=== PATIENT | female | born 1990 | race Caucasian/White ===

== ENCOUNTER 2024-09-13 12:40 | Emergency (ER) | payer BC ==
[2024-09-13] MEDS ORDERED: Sodium Chloride 0.9% 10 ML Syringe FLUSH PRN (13:28)
[2024-09-13] MEDS: Sodium Chloride 0.9% 1,000 ML IV ONE ×2 (13:40→15:39)
[2024-09-13] MEDS: Ondansetron 4 MG/2 ML SDV IVPUSH ONE (13:40)
[2024-09-13 13:42] LABS: BASOPHILS PERCENT AUTO 0.2 % (0.2-1.5); EOSINOPHILS PERCENT AUTO 0.4 % (0.6-8.1); HEMATOCRIT 44.9 % (34.2-48.2); HEMOGLOBIN 15.8 g/dL (11.4-15.5); LYMPHOCYTES PERCENT AUTO 12.4 % (18.4-52.1); MEAN CORPUSCULAR HEMOGLOBIN 30.7 pg (23.9-33.9); MEAN CORPUSCULAR HGB CONC 35.2 g/dL (31.9-34.8); MEAN CORPUSCULAR VOLUME 87.2 fL (76.7-100.5); MEAN PLATELET VOLUME 10.2 fL (7.1-12.4); MONOCYTES ABSOLUTE AUTO 0.8 x10-3/uL (0.3-1.0); MONOCYTES PERCENT AUTO 10.4 % (4.4-15.7); NEUTROPHILS ABSOLUTE AUTO 6.2 x10-3/uL (1.5-6.3); NEUTROPHILS PERCENT AUTO 76.6 % (30.8-76.2); PLATELET COUNT,PLT 208 x10(3)uL (151-488); RED BLOOD CELL COUNT 5.14 x10(6)uL (3.60-5.20); RED CELL DISTRIBUTION WIDTH 12.6 % (12.3-16.5); WHITE BLOOD CELL COUNT,WBC 8.1 x10-3/uL (3.0-10.3)
[2024-09-13 13:45] LABS: BLOOD UREA NITROGEN,BUN 8 mg/dL (7-18); BUN/CREATININE RATIO 8.9 (9-20); CALCIUM 9.1 mg/dL (8.6-10.2); CARBON DIOXIDE,CO2 24 mmol/L (21-32); CHLORIDE,CL 102 mmol/L (100-110); CREATININE 0.9 mg/dL (0.55-1.02); ESTIMATED GFR 86 mL/min (>60); GLUCOSE RANDOM 93 mg/dL (80-116); POTASSIUM,K 3.5 mmol/L (3.5-5.3); SODIUM,NA 139 mmol/L (135-145)
[2024-09-13 13:52] LABS: ALANINE AMINOTRANSFERASE,ALT 33 U/L (12-36); ALBUMIN 3.6 g/dL (3.5-5.2); ALKALINE PHOSPHATASE 68 IU/L (56-112); ASPARTATE AMNIOTRANSFERASE,AST 18 IU/L (5-25); BILIRUBIN TOTAL 0.4 mg/dL (0.1-1.3); PROTEIN TOTAL,TP 7.4 g/dL (6.0-8.0)
[2024-09-13 13:56] LABS: LACTIC ACID 0.8 mmol/L (0.4-2.0)
== END 2024-09-13 16:18 | disposition home or self-care (01) ==
LOC: FB.ED 12:40
DX: O21.0 Mild hyperemesis gravidarum (principal); O30.041 Twin pregnancy, dichorionic/diamniotic, first trimester; Z3A.09 9 weeks gestation of pregnancy
CPT/HCPCS: 80053; 83605; 85025; 86140; 96361; 96374; 99284; J2405; J7030

== ENCOUNTER 2024-10-09 09:02 | Emergency (ER) | payer BC ==
[2024-10-09] MEDS: Sodium Chloride 0.9% 1,000 ML IV ONE ×3 (09:46→11:55)
[2024-10-09] MEDS: Promethazine 12.5 MG in Sodium Chloride 0.9% 50 ML IV ONE (09:46)
[2024-10-09 09:51] LABS: BASOPHILS PERCENT AUTO 0.1 % (0.2-1.5); EOSINOPHILS PERCENT AUTO 0.1 % (0.6-8.1); HEMATOCRIT 49.4 % (34.2-48.2); HEMOGLOBIN 17.7 g/dL (11.4-15.5); LYMPHOCYTES ABSOLUTE AUTO 1.1 x10-3/uL (1.0-4.4); LYMPHOCYTES PERCENT AUTO 8.1 % (18.4-52.1); MEAN CORPUSCULAR HEMOGLOBIN 30.4 pg (23.9-33.9); MEAN CORPUSCULAR HGB CONC 35.8 g/dL (31.9-34.8); MEAN CORPUSCULAR VOLUME 84.9 fL (76.7-100.5); MEAN PLATELET VOLUME 12.1 fL (7.1-12.4); MONOCYTES PERCENT AUTO 7.9 % (4.4-15.7); NEUTROPHILS ABSOLUTE AUTO 10.9 x10-3/uL (1.5-6.3); NEUTROPHILS PERCENT AUTO 83.8 % (30.8-76.2); PLATELET COUNT,PLT 226 x10(3)uL (151-488); RED BLOOD CELL COUNT 5.82 x10(6)uL (3.60-5.20); RED CELL DISTRIBUTION WIDTH 12.8 % (12.3-16.5); WHITE BLOOD CELL COUNT,WBC 13.1 x10-3/uL (3.0-10.3)
[2024-10-09 09:54] LABS: BLOOD UREA NITROGEN,BUN 9 mg/dL (7-18); BUN/CREATININE RATIO 8.2 (9-20); CALCIUM 9.7 mg/dL (8.6-10.2); CARBON DIOXIDE,CO2 17 mmol/L (21-32); CHLORIDE,CL 100 mmol/L (100-110); CREATININE 1.1 mg/dL (0.55-1.02); ESTIMATED GFR 67 mL/min (>60); GLUCOSE RANDOM 134 mg/dL (80-116); POTASSIUM,K 3.2 mmol/L (3.5-5.3); SODIUM,NA 138 mmol/L (135-145)
[2024-10-09 09:59] LABS: A/G RATIO 0.7; ALANINE AMINOTRANSFERASE,ALT 47 U/L (12-36); ALBUMIN 3.4 g/dL (3.5-5.2); ALKALINE PHOSPHATASE 91 IU/L (56-112); ASPARTATE AMNIOTRANSFERASE,AST 29 IU/L (5-25); BILIRUBIN TOTAL 0.7 mg/dL (0.1-1.3); MAGNESIUM 1.4 mg/dL (1.8-2.5); PROTEIN TOTAL,TP 8.1 g/dL (6.0-8.0)
[2024-10-09] MEDS: diphenhydrAMINE 50 MG/ML SDV IVPUSH ONE (11:55)
[2024-10-09] MEDS: Prochlorperazine 10 MG/2 ML SDV IVPUSH ONE (11:56)
[2024-10-09] MEDS: Vitamin B6-pyridOXINE 100 MG Tab PO ONE (13:12)
[2024-10-09 13:48] LABS: BILIRUBIN,URINE NEGATIVE (NEGATIVE); GLUCOSE,URINE NORMAL (NORMAL); KETONES,URINE 150 mg/dL (NEGATIVE); LEUKOCYTE ESTERASE,URINE NEGATIVE (NEGATIVE); NITRITE,URINE NEGATIVE (NEGATIVE); OCCULT BLOOD,URINE NEGATIVE (NEGATIVE); PROTEIN,URINE 30 mg/dL (NEGATIVE); UROBILINOGEN,URINE NORMAL (NEGATIVE)
[2024-10-09 14:09] LABS: APPEARANCE,URINE CLEAR (CLEAR); BACTERIA,URINE FEW (NS); COLOR,URINE YELLOW (YELLOW); RBC,URINE 0-5 (0-5); SQUAMOUS EPITHELIAL CELLS,UR FEW (NS,R,O); WBC,URINE 0-5 (0-5)
[2024-10-09] MEDS: Sodium Chloride 0.9% 1,000 ML IV SCH ×2 (14:56→21:41)
[2024-10-09] MEDS: Ondansetron 4 MG/2 ML SDV IVPUSH ONE (14:56)
[2024-10-09] MEDS ORDERED: Prochlorperazine 5 MG in Sodium Chloride 0.9% 50 ML IV PRN (16:12)
[2024-10-09] MEDS ORDERED: Acetaminophen 325 MG Tab PO PRN (16:12)
[2024-10-09] MEDS: Magnesium Sulfate/Water Premix 2 GM in Premix Bag 1 BAG IV SCH (17:01)
[2024-10-09] MEDS: Vitamin B6-pyridOXINE 100 MG Tab PO SCH (21:44)
[2024-10-10] MEDS: Magnesium Oxide 400 MG Tab PO ONE (04:43)
[2024-10-10 06:46] LABS: BASOPHILS PERCENT AUTO 0.4 % (0.2-1.5); EOSINOPHILS PERCENT AUTO 0.4 % (0.6-8.1); HEMATOCRIT 39.1 % (34.2-48.2); HEMOGLOBIN 13.8 g/dL (11.4-15.5); LYMPHOCYTES ABSOLUTE AUTO 1.4 x10-3/uL (1.0-4.4); LYMPHOCYTES PERCENT AUTO 13.2 % (18.4-52.1); MEAN CORPUSCULAR HEMOGLOBIN 30.5 pg (23.9-33.9); MEAN CORPUSCULAR HGB CONC 35.4 g/dL (31.9-34.8); MEAN CORPUSCULAR VOLUME 86.2 fL (76.7-100.5); MEAN PLATELET VOLUME 11.3 fL (7.1-12.4); NEUTROPHILS ABSOLUTE AUTO 8.3 x10-3/uL (1.5-6.3); PLATELET COUNT,PLT 157 x10(3)uL (151-488); RED BLOOD CELL COUNT 4.53 x10(6)uL (3.60-5.20); RED CELL DISTRIBUTION WIDTH 13.2 % (12.3-16.5); WHITE BLOOD CELL COUNT,WBC 10.7 x10-3/uL (3.0-10.3)
[2024-10-10 07:30] LABS: CALCIUM 7.6 mg/dL (8.6-10.2); CARBON DIOXIDE,CO2 17 mmol/L (21-32); CREATININE 0.7 mg/dL (0.55-1.02); EST CRCL DRUG DOSING (CG) 100.94 mL/min; ESTIMATED GFR 116 mL/min (>60); GLUCOSE RANDOM 91 mg/dL (80-116); MAGNESIUM 1.9 mg/dL (1.8-2.5)
[2024-10-10 07:53] LABS: BLOOD UREA NITROGEN,BUN < 5 mg/dL (7-18); BUN/CREATININE RATIO 7.1 (9-20)
[2024-10-10 08:45] LABS: CHLORIDE,CL 108 mmol/L (100-110); POTASSIUM,K 2.9 mmol/L (3.5-5.3); SODIUM,NA 140 mmol/L (135-145)
[2024-10-10] MEDS: Pantoprazole 40 MG Vial IVPUSH SCH (09:53)
[2024-10-10] MEDS: Ondansetron 4 MG/2 ML SDV IV PRN (09:56)
[2024-10-10] MEDS: Sodium Chloride 0.9% 10 ML Syringe FLUSH PRN (10:06)
[2024-10-10] MEDS: NS + KCl 20mEq/L 1,000 ML IV SCH (11:12)
[2024-10-11 05:47] LABS: CARBON DIOXIDE,CO2 16 mmol/L (21-32); CHLORIDE,CL 107 mmol/L (100-110); CREATININE 0.5 mg/dL (0.55-1.02); EST CRCL DRUG DOSING (CG) 141.31 mL/min; ESTIMATED GFR 125 mL/min (>60); GLUCOSE RANDOM 81 mg/dL (80-116); POTASSIUM,K 3.2 mmol/L (3.5-5.3); SODIUM,NA 138 mmol/L (135-145)
[2024-10-11 05:58] LABS: BASOPHILS PERCENT AUTO 0.4 % (0.2-1.5); EOSINOPHILS PERCENT AUTO 0.6 % (0.6-8.1); HEMATOCRIT 36.1 % (34.2-48.2); HEMOGLOBIN 13.3 g/dL (11.4-15.5); LYMPHOCYTES ABSOLUTE AUTO 1.3 x10-3/uL (1.0-4.4); LYMPHOCYTES PERCENT AUTO 19.8 % (18.4-52.1); MEAN CORPUSCULAR HEMOGLOBIN 31.5 pg (23.9-33.9); MEAN CORPUSCULAR HGB CONC 36.9 g/dL (31.9-34.8); MEAN CORPUSCULAR VOLUME 85.4 fL (76.7-100.5); MEAN PLATELET VOLUME 11.5 fL (7.1-12.4); MONOCYTES ABSOLUTE AUTO 0.7 x10-3/uL (0.3-1.0); MONOCYTES PERCENT AUTO 10.4 % (4.4-15.7); NEUTROPHILS ABSOLUTE AUTO 4.6 x10-3/uL (1.5-6.3); NEUTROPHILS PERCENT AUTO 68.8 % (30.8-76.2); PLATELET COUNT,PLT 143 x10(3)uL (151-488); RED BLOOD CELL COUNT 4.23 x10(6)uL (3.60-5.20); WHITE BLOOD CELL COUNT,WBC 6.7 x10-3/uL (3.0-10.3)
[2024-10-11 06:00] LABS: BLOOD UREA NITROGEN,BUN < 5 mg/dL (7-18)
[2024-10-11] MEDS: Metoclopramide 10 MG/2 ML SDV IV PRN (08:25)
== END 2024-10-11 12:40 | disposition home or self-care (01) ==
LOC: FB.ED 09:02 → FB.MS 15:17
PROVIDERS: ADMIT Family Medicine; ATTEND Family Medicine
DX: O21.1 Hyperemesis gravidarum with metabolic disturbance (principal); E83.42 Hypomagnesemia; Z79.899 Other long term (current) drug therapy; Z3A.12 12 weeks gestation of pregnancy
CPT/HCPCS: 36415; 80048; 80053; 81001; 83605; 83735; 85025; 94150; 96361; 96365; 96366; 96367; 96375; 96376; 99222; 99232; 99238; 99285; 99285-25; A9270-GY; G0378; J0780; J1200; J2405; J2470; J2550; J2765; J3475; J3480; J3490; J7030

== ENCOUNTER 2024-11-01 13:27 | Emergency (ER) | payer BC ==
[2024-11-01] MEDS: Sodium Chloride 0.9% 10 ML Syringe FLUSH PRN (14:25)
[2024-11-01] MEDS: Sodium Chloride 0.9% 1,000 ML IV ONE ×2 (14:25→15:53)
[2024-11-01 14:34] LABS: HEMOGLOBIN 12.7 g/dL (11.4-15.5); MEAN CORPUSCULAR HEMOGLOBIN 30.6 pg (23.9-33.9); MEAN CORPUSCULAR HGB CONC 35.1 g/dL (31.9-34.8); PLATELET COUNT,PLT 170 x10(3)uL (151-488); RED BLOOD CELL COUNT 4.14 x10(6)uL (3.60-5.20); RED CELL DISTRIBUTION WIDTH 13.8 % (12.3-16.5); WHITE BLOOD CELL COUNT,WBC 4.7 x10-3/uL (3.0-10.3)
[2024-11-01 14:47] LABS: A/G RATIO 0.6; ALANINE AMINOTRANSFERASE,ALT 105 U/L (12-36); ALBUMIN 2.2 g/dL (3.5-5.2); ALKALINE PHOSPHATASE 68 IU/L (56-112); ASPARTATE AMNIOTRANSFERASE,AST 85 IU/L (5-25); BILIRUBIN TOTAL 0.8 mg/dL (0.1-1.3); CARBON DIOXIDE,CO2 22 mmol/L (21-32); CHLORIDE,CL 98 mmol/L (100-110); CREATININE 0.6 mg/dL (0.55-1.02); ESTIMATED GFR 120 mL/min (>60); GLUCOSE RANDOM 89 mg/dL (80-116); MAGNESIUM 1.4 mg/dL (1.8-2.5); SODIUM,NA 133 mmol/L (135-145)
[2024-11-01 14:57] LABS: BLOOD UREA NITROGEN,BUN < 5 mg/dL (7-18); BUN/CREATININE RATIO 8.3 (9-20); POTASSIUM,K 2.8 mmol/L (3.5-5.3)
[2024-11-01 15:44] LABS: LYMPHOCYTES PERCENT MAN 2 % (13-37); MONOCYTES PERCENT MAN 5 % (4-12); SEG NEUTROPHILS PERCENT MAN 93 % (46-82)
[2024-11-01] MEDS: Potassium Chloride 20 MEQ Tab.ER PO ONE ×2 (15:52→20:26)
[2024-11-01] MEDS: Magnesium Sulf/Wat 2 GM/50 mL 2 GM in Premix Bag 1 BAG IV ONE (15:56)
[2024-11-01] MEDS: Potassium Chloride 10 MEQ in Premix Bag 1 BAG IV ONE (16:58)
[2024-11-01 18:56] LABS: BILIRUBIN,URINE SMALL (NEGATIVE); GLUCOSE,URINE NORMAL (NORMAL); KETONES,URINE 150 mg/dL (NEGATIVE); LEUKOCYTE ESTERASE,URINE NEGATIVE (NEGATIVE); NITRITE,URINE NEGATIVE (NEGATIVE); OCCULT BLOOD,URINE LARGE (NEGATIVE); PROTEIN,URINE TRACE mg/dL (NEGATIVE); UROBILINOGEN,URINE 4 mg/dL (NEGATIVE)
[2024-11-01 19:01] LABS: APPEARANCE,URINE CLOUDY (CLEAR); BACTERIA,URINE MODERATE (NS); COLOR,URINE YELLOW (YELLOW); SQUAMOUS EPITHELIAL CELLS,UR MODERATE (NS,R,O); WBC,URINE 0-5 (0-5)
[2024-11-01] MEDS: Oseltamivir 75 MG Cap PO ONE (20:27)
[2024-11-01] MEDS: Magnesium Oxide 400 MG Tab PO ONE (20:27)
== END 2024-11-01 20:40 | disposition home or self-care (01) ==
LOC: FB.ED 13:27
DX: O98.512 Other viral diseases complicating pregnancy, second trimester (principal); J10.1 Influenza due to other identified influenza virus with other respiratory manifestations; O99.282 Endocrine, nutritional and metabolic diseases complicating pregnancy, second trimester; E86.0 Dehydration; E87.6 Hypokalemia; E83.42 Hypomagnesemia; O21.0 Mild hyperemesis gravidarum; Z3A.16 16 weeks gestation of pregnancy; Z79.899 Other long term (current) drug therapy
CPT/HCPCS: 36415; 80053; 81001; 83735; 85025; 86140; 87428; 87651; 96361; 96365; 96367; 99284; A9270; J3475; J3480; J7030

== ENCOUNTER 2024-11-22 17:03 | Emergency (ER) | payer BC ==
[2024-11-22] MEDS ORDERED: Acetaminophen/HYDROcodone 325-5 MG Tab PO ONE (17:04)
[2024-11-22] MEDS: Sodium Chloride 0.9% 1,000 ML IV ONE ×2 (17:31→19:20)
[2024-11-22] MEDS: Ondansetron 4 MG/2 ML SDV IVPUSH ONE (17:31)
[2024-11-22] MEDS: Ketorolac 30 MG/ML SDV IVPUSH ONE (17:31)
[2024-11-22 17:34] LABS: BASOPHILS PERCENT AUTO 0.3 % (0.2-1.5); EOSINOPHILS ABSOLUTE AUTO 0.1 x10-3/uL (0.0-0.8); EOSINOPHILS PERCENT AUTO 0.7 % (0.6-8.1); HEMATOCRIT 39.5 % (34.2-48.2); HEMOGLOBIN 13.3 g/dL (11.4-15.5); MEAN CORPUSCULAR HEMOGLOBIN 30.2 pg (23.9-33.9); MEAN CORPUSCULAR HGB CONC 33.8 g/dL (31.9-34.8); MEAN CORPUSCULAR VOLUME 89.5 fL (76.7-100.5); MEAN PLATELET VOLUME 10.2 fL (7.1-12.4); MONOCYTES ABSOLUTE AUTO 0.9 x10-3/uL (0.3-1.0); MONOCYTES PERCENT AUTO 10.1 % (4.4-15.7); NEUTROPHILS ABSOLUTE AUTO 6.5 x10-3/uL (1.5-6.3); NEUTROPHILS PERCENT AUTO 76.9 % (30.8-76.2); PLATELET COUNT,PLT 251 x10(3)uL (151-488); RED BLOOD CELL COUNT 4.41 x10(6)uL (3.60-5.20); RED CELL DISTRIBUTION WIDTH 13.7 % (12.3-16.5); WHITE BLOOD CELL COUNT,WBC 8.4 x10-3/uL (3.0-10.3)
[2024-11-22 17:37] LABS: BLOOD UREA NITROGEN,BUN 7 mg/dL (7-18); BUN/CREATININE RATIO 5.8 (9-20); CARBON DIOXIDE,CO2 24 mmol/L (21-32); CHLORIDE,CL 103 mmol/L (100-110); CREATININE 1.2 mg/dL (0.55-1.02); ESTIMATED GFR 61 mL/min (>60); GLUCOSE RANDOM 106 mg/dL (80-116); POTASSIUM,K 3.8 mmol/L (3.5-5.3); SODIUM,NA 140 mmol/L (135-145)
[2024-11-22 17:43] LABS: A/G RATIO 0.7; ALANINE AMINOTRANSFERASE,ALT 40 U/L (12-36); ALBUMIN 3.2 g/dL (3.5-5.2); ALKALINE PHOSPHATASE 102 IU/L (56-112); ASPARTATE AMNIOTRANSFERASE,AST 25 IU/L (5-25); BILIRUBIN TOTAL 0.7 mg/dL (0.1-1.3); PROTEIN TOTAL,TP 7.6 g/dL (6.0-8.0)
[2024-11-22 18:38] LABS: BILIRUBIN,URINE NEGATIVE (NEGATIVE); GLUCOSE,URINE NORMAL (NORMAL); KETONES,URINE NEGATIVE (NEGATIVE); LEUKOCYTE ESTERASE,URINE MODERATE (NEGATIVE); NITRITE,URINE NEGATIVE (NEGATIVE); OCCULT BLOOD,URINE NEGATIVE (NEGATIVE); PROTEIN,URINE NEGATIVE (NEGATIVE); UROBILINOGEN,URINE NORMAL (NEGATIVE)
[2024-11-22 18:39] LABS: APPEARANCE,URINE SLIGHTLY CLOUDY (CLEAR); COLOR,URINE YELLOW (YELLOW)
[2024-11-22 18:46] LABS: RBC,URINE 0-5 (0-5); SQUAMOUS EPITHELIAL CELLS,UR MODERATE (NS,R,O)
[2024-11-22 18:47] LABS: BACTERIA,URINE MODERATE (NS)
[2024-11-22] MEDS: Tamsulosin 0.4 MG Cap.ER PO ONE (19:17)
== END 2024-11-22 20:45 | disposition home or self-care (01) ==
LOC: FB.ED 17:03
DX: N20.0 Calculus of kidney (principal); Z79.899 Other long term (current) drug therapy
CPT/HCPCS: 36415; 74176; 80053; 81001; 81025; 85025; 87086; 96361; 96374; 96375; 99284; 99284-25; A9270-GY; J1885; J2405; J7030